=== PATIENT | male | born 1955 | race African-American/Black ===

== ENCOUNTER 2020-05-31 05:35 | Emergency (ER) | payer OTHER, SELFPAY ==
[2020-05-31 05:38] VITALS: BP 146/75; BP 177/88; PULSE 65; PULSE 89; RESP 18; TEMP 36.6; O2SAT 100; O2SAT 98; BMI 24.6
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
== END 2020-05-31 06:05 | disposition home or self-care (01) ==
LOC: HO.ED 06:00
PROVIDERS: Emergency Provider Internal Medicine; PCP Family Medicine
DX: S09.90XA Unspecified injury of head, initial encounter (principal); S00.90XA Unspecified superficial injury of unspecified part of head, initial encounter; G44.309 Post-traumatic headache, unspecified, not intractable; V43.52XA Car driver injured in collision with other type car in traffic accident, initial encounter; Y93.9 Activity, unspecified; Y92.410 Unspecified street and highway as the place of occurrence of the external cause; Y99.9 Unspecified external cause status
CPT/HCPCS: 99283

== ENCOUNTER 2021-03-17 18:29 | Emergency (ER) | payer OTHER, SELFPAY ==
[2021-03-17 18:40] VITALS: BP 146/72; PULSE 65; RESP 16; TEMP 36.4; O2SAT 99; BMI 24.0
--- NOTE | 2021-03-17 18:47 | ED_ITS ---
HPI - General Adult General Chief complaint: Dizziness Stated complaint: dizzy-drank water feels better Time Seen by Provider: 03/17/21 18:41 Source: patient Mode of arrival: EMS Limitations: no limitations History of Present Illness HPI narrative: Patient with history of hypertension otherwise healthy no history of coronary disease was working out today since 14:00 was sitting in the sauna for 16 minutes and then worked out after workout ,patient was in the sun for some time for dinner felt dizzy lightheaded almost passing out had some water and felt better patient denies any chest pain no palpitation no shortness of breath Related Data Allergies Allergy/AdvReac Type Severity Reaction Status Date / Time albuterol [ALBUTEROL] Allergy Unknown HIVES Unverified 03/30/20 16:35 Review of Systems Review of Systems: Yes all other systems are reviewed and are negative COUNT INCLUDES [facility] Past Medical History Medical History HTN (hypertension) Social History Social History Advance Directives: No Advance Directives Information Provided: No Physical Exam Vital Signs: Vital Signs: Last Vital Signs Temp 97.5 F 03/17/21 18:40 Pulse 65 03/17/21 18:40 Resp 16 03/17/21 18:40 BP 146/72 H 03/17/21 18:40 Pulse Ox 99 03/17/21 18:40 Body Mass Index 24.0 Appearance: Alert. Oriented X3. No acute distress. Eyes: PERRLA, No Nystagmus no pallor or icterus ENT: Pharynx normal. Oral Mucosa moist Neck: Normal inspection. Neck supple. CVS: Normal heart rate and rhythm. Pulses normal. Respiratory: No respiratory distress. Equal air entry bilateral, no wheezing/rales/rhonchi Abdomen: Soft and nontender. Bowel sounds are present, no mass palpable, no CVA tenderness Skin: Skin warm and dry. Normal skin color. Normal skin turgor. Extremities: No lower extremity edema. No calf tenderness Neuro: Oriented X 3. No motor deficit. No sensory deficit.No cerebellar signs , cranial nerves II-XII intact Medical Decision Making MDM Narrative Medical decision making narrative: Patient with symptoms of heat exhaustion feel better now after IV fluids and p.o. fluids lab workup showed slightly elevated CPK to 251 cardiac enzymes negative discharge patient home Lab Data Lab results reviewed: Yes I reviewed the patient's lab results. Result diagrams: 03/17/21 19:14 03/17/21 19:15 Labs: Lab Results 03/17/21 03/17/21 03/17/21 Range/Units 19:14 19:15 19:15 WBC 5.7 (4.8-10.8) X10*3/uL RBC 4.78 (4.60-5.80) X10*6/uL Hgb 14.8 (14.0-18.0) g/dl Hct 44.6 (42-52) % MCV 93.3 (80-98) fL MCH 31.0 (27.0-33.0) pg MCHC 33.2 (31.0-36.0) g/dl RDW 11.9 (11.0-16.0) % Plt Count 244 (160-400) X10*3/uL MPV 10.0 (9.4-12.4) fL Immature Gran % (Auto) 0.4 (0.0-0.4) % Neut % (Auto) 84.0 H (45-73) % Lymph % (Auto) 8.2 L (20-40) % Coles % (Auto) 5.6 (2-11) % Eos % (Auto) 1.4 (0-4) % Baso % (Auto) 0.4 (0-2) % Lymph # (Auto) 0.5 L (1.2-4.9) X10*3/uL Coles # (Auto) 0.3 (0.1-1.2) X10*3/uL Eos # (Auto) 0.1 (0.0-0.4) X10*3/uL Baso # (Auto) 0.0 (0.0-0.2) X10*3/uL Abs Immat Gran (auto) 0.02 (0.00-0.03) X10*3/uL Absolute Neuts (auto) 4.8 (2.0-8.3) X10*3/uL Absolute Nucleated RBC 0.000 (0.0-0.012) X10*3/uL Nucleated RBC % (auto) 0.0 (0.0-0.2) /100WBC Sodium 136 (135-145) mmol/L Potassium 4.4 (3.3-5.1) mmol/L Chloride 102 (96-108) mmol/L Carbon Dioxide 25 (22-29) mmol/L Anion Gap 13 (12-20) BUN 17 H (9-16) mg/dL Creatinine 0.85 (0.5-1.4) mg/dL Estim Creat Clear Calc 84.9 Estimated GFR > 60 Random Glucose 156 H (60-115) mg/dL Calcium 9.2 (8.4-10.2) mg/dL Total Bilirubin 0.8 (0.0-1.0) mg/dL AST 27 (5-37) U/L ALT 20 (0-40) U/L Alkaline Phosphatase 57 (39-117) U/L Total Creatine Kinase 251 H (38-174) U/L Troponin I High Sens (<3.5-35.0) ng/L Total Protein 7.5 (6.5-8.0) g/dL Albumin 4.3 (3.5-5.0) g/dL 03/17/21 Range/Units 19:15 WBC (4.8-10.8) X10*3/uL RBC (4.60-5.80) X10*6/uL Hgb (14.0-18.0) g/dl Hct (42-52) % MCV (80-98) fL MCH (27.0-33.0) pg MCHC (31.0-36.0) g/dl RDW (11.0-16.0) % Plt Count (160-400) X10*3/uL MPV (9.4-12.4) fL Immature Gran % (Auto) (0.0-0.4) % Neut % (Auto) (45-73) % Lymph % (Auto) (20-40) % Coles % (Auto) (2-11) % Eos % (Auto) (0-4) % Baso % (Auto) (0-2) % Lymph # (Auto) (1.2-4.9) X10*3/uL Coles # (Auto) (0.1-1.2) X10*3/uL Eos # (Auto) (0.0-0.4) X10*3/uL Baso # (Auto) (0.0-0.2) X10*3/uL Abs Immat Gran (auto) (0.00-0.03) X10*3/uL Absolute Neuts (auto) (2.0-8.3) X10*3/uL Absolute Nucleated RBC (0.0-0.012) X10*3/uL Nucleated RBC % (auto) (0.0-0.2) /100WBC Sodium (135-145) mmol/L Potassium (3.3-5.1) mmol/L Chloride (96-108) mmol/L Carbon Dioxide (22-29) mmol/L Anion Gap (12-20) BUN (9-16) mg/dL Creatinine (0.5-1.4) mg/dL Estim Creat Clear Calc Estimated GFR Random Glucose (60-115) mg/dL Calcium (8.4-10.2) mg/dL Total Bilirubin (0.0-1.0) mg/dL AST (5-37) U/L ALT (0-40) U/L Alkaline Phosphatase (39-117) U/L Total Creatine Kinase (38-174) U/L Troponin I High Sens 7.0 (<3.5-35.0) ng/L Total Protein (6.5-8.0) g/dL Albumin (3.5-5.0) g/dL ECG Data Attestation: I personally reviewed and interpreted this ECG as follows: Interpretation: Normal sinus rhythm heart rate 70 beats per minute normal intervals normal axis no acute ST T wave changes no acute ischemia Discharge Plan Discharge Clinical Impression: Heat exhaustion Patient Disposition: Home, Self-Care Instructions: Heat Exhaustion (ED) Additional Instructions: Drink plenty of fluids while doing exercise Report to the ER if any chest pain shortness of breath or syncope episode again Interventions: ED Discharge Assessment Last Done: 03/17/21 21:09 Discharge Date/Time: 03/17/21 21:10
--- NOTE | 2021-03-17 18:58 | ECG_ITS ---
Test Reason : DIZZINESS Blood Pressure : / mmHG Vent. Rate : 070 BPM Atrial Rate : 070 BPM P-R Int : 142 ms QRS Dur : 090 ms QT Int : 408 ms P-R-T Axes : 050 -14 010 degrees QTc Int : 440 ms Normal sinus rhythm Possible Left atrial enlargement Nonspecific T wave abnormality Abnormal ECG When compared with ECG of 20-DEC-2003 03:22, No significant change was found Referred By: Jonathan Hall Electronically Signed By:MAMTA MARY
[2021-03-17] MEDS: 0.9 % Sodium Chloride 1,000 ML 999 ML IVCONT (19:11)
[2021-03-17 19:20] LABS: Basophils Percent Auto 0.4 % (0-2); Eosinophils Absolute Auto 0.1 X10*3/uL (0.0-0.4); Eosinophils Percent Auto 1.4 % (0-4); Hematocrit 44.6 % (42-52); Hemoglobin 14.8 g/dl (14.0-18.0); Imm Gran Abs Auto 0.02 X10*3/uL (0.00-0.03); Imm Gran Pct Auto 0.4 % (0.0-0.4); Lymphocytes Absolute Auto 0.5 X10*3/uL (1.2-4.9); Lymphocytes Percent Auto 8.2 % (20-40); MANUAL DIFF FLAG NO; Mean Corpuscular HGB Conc 33.2 g/dl (31.0-36.0); Mean Corpuscular Volume 93.3 fL (80-98); Monocytes Absolute Auto 0.3 X10*3/uL (0.1-1.2); Monocytes Percent Auto 5.6 % (2-11); Neutrophils Absolute Auto 4.8 X10*3/uL (2.0-8.3); Platelet Count 244 X10*3/uL (160-400); Red Blood Count 4.78 X10*6/uL (4.60-5.80); Red Cell Distribution Width 11.9 % (11.0-16.0); White Blood Count 5.7 X10*3/uL (4.8-10.8)
[2021-03-17 19:39] LABS: Alanine Aminotransferase 20 U/L (0-40); Albumin Level 4.3 g/dL (3.5-5.0); Alkaline Phosphatase 57 U/L (39-117); Anion Gap 13 (12-20); Aspartate Amino Transferase 27 U/L (5-37); Bilirubin Total 0.8 mg/dL (0.0-1.0); Blood Urea Nitrogen 17 mg/dL (9-16); Calcium 9.2 mg/dL (8.4-10.2); Carbon Dioxide 25 mmol/L (22-29); Chloride 102 mmol/L (96-108); Creatinine Clr Calc Pharmacy 84.9; Estimated Glomerular Filt Rate > 60; Glucose Random 156 mg/dL (60-115); Potassium 4.4 mmol/L (3.3-5.1); Sodium 136 mmol/L (135-145); Total Protein 7.5 g/dL (6.5-8.0)
== END 2021-03-17 21:10 | disposition home or self-care (01) ==
PROVIDERS: Emergency Provider Internal Medicine; PCP Family Medicine
DX: T67.5XXA Heat exhaustion, unspecified, initial encounter (principal); X32.XXXA Exposure to sunlight, initial encounter; R42 Dizziness and giddiness; Y93.89 Activity, other specified; Y92.89 Other specified places as the place of occurrence of the external cause; Y99.9 Unspecified external cause status
CPT/HCPCS: 36415; 80053; 82550; 84484; 85025; 93005; 96360; 99283; 99284

== ENCOUNTER 2024-08-13 07:47 | Emergency (ER) | payer OTHER, SELFPAY ==
--- NOTE | 2024-08-13 07:50 | ED_ITS ---
HPI - Syncope General Chief Complaint: Syncope Stated Complaint: NEAR SYNCOPE,N,V Source: patient, EMS and old records reviewed Mode of arrival: EMS Limitations: no limitations History of Present Illness ED Provider: SIMON WILDER narrative: 68 yo male with PMH of HTN here with c/o waking up and not feeling well this AM. He felt nauseated. He went to work and proceeded to have more dizziness and nausea with vomiting and felt like he was going to faint. He denies LOC or headstrike. He has no pain, fevers, chest pain/dyspnea. No seizures reported. He is feeling much better now. Denies travel or known sick contacts but works at [employer]. 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) Prodromal symptoms: lightheaded and nausea/vomiting Witnessed: No Context: at rest Injuries sustained associated with event: none Current symptoms: back to baseline Treatments prior to arrival: IV fluids Related Data Previous Rx's ?Medication ?Instructions ?Recorded ondansetron 4 mg disintegrating 4 mg PO Q8H PRN nausea and 08/13/24 tablet vomiting #20 tabs Allergies Allergy/AdvReac Type Severity Reaction Status Date / Time albuterol [ALBUTEROL] Allergy Unknown HIVES Verified 08/13/24 08:37 Review of Systems 2 Review of Systems: Constitutional : No Weight loss, No Fever, No Chills ENT/Mouth : No sore throat, No Rhinorrhea Eyes: No Swelling, No Redness Cardiovascular : No Chest Pain, No SOB, NoEdema Respiratory : No Cough, No Sputum, No Wheezing Gastrointestinal : Positive Nausea, Positive Vomiting, no Diarrhea, no abdominal Pain, No Hematochezia, No Melena Genitourinary : No Dysuria, No Urinary Frequency, No Hematuria, No Urgency Musculoskeletal : No joint pain, No Myalgias, No Joint Swelling Skin : No Skin Lesions, No rash Neuro : No Weakness, No Numbness,pos Dizziness, No Headache All other systems reviewed and are negative. [facility] Past Medical History Attestation statement: The following information was validated with the patient. Source: old records reviewed Medical History HTN (hypertension) Social History Social History (Updated 08/13/24 @ 07:50 by Ly Avendaño DO) Patient Tobacco Use Status: Never used Tobacco Smoked in Last 30 Days: No Use of substances other than those prescribed or required for medical reasons: No Advance Directives: No Advance Directives Information Provided: Yes Do you have a plan to hurt others: No Plan Physical Exam 2 Vital Signs: Vital Signs: Last Vital Signs Temp 98 F 08/13/24 08:38 Pulse 70 08/13/24 10:16 Resp 16 08/13/24 10:16 BP 108/69 08/13/24 10:16 Pulse Ox 99 08/13/24 10:16 O2 Del Method Room Air 08/13/24 10:16 BMI result Body Mass Index 25.7 Appearance: Alert. Oriented X3. No acute distress. Eyes: Pupils equal, round and reactive to light. ENT: Pharynx normal. Neck: Normal inspection. Neck supple. CVS: Normal heart rate and rhythm. Pulses normal. Respiratory: No respiratory distress. Breath sounds normal. Abdomen: Soft and nontender. Skin: Skin warm and dry. Normal skin color. Normal skin turgor. Extremities: No lower extremity edema. No calf ttp Neuro: Oriented X 3. No motor deficit. No sensory deficit. CN2-12 intact Medications Administered Discontinued Medications Generic Name Dose Route Start Last Admin Trade Name Freq PRN Reason Stop Dose Admin Sodium Chloride 1,000 mls @ 999 mls/hr 08/13/24 07:59 08/13/24 10:09 Ns IV 08/13/24 08:59 Infused .Q1H1M ONE Infusion Medical Decision Making Medical Decision Making MDM Narrative: 68 yo male with PMH of HTN here with c/o near syncope today no LOC no trauma and the patient prior to this had n/v since since waking at 230am. No trauma reported no CP/SOB to suggest ACS and no signs or known risk factors for DVT doubt VTE. He has no neuro deficits and no associated vision changes, numbness, weakness with the near syncope. At this time no GIB symptoms reported. Will obtain labs, EKG, hydrate - possible dehydration, anemia, viral syndrome. No pain on abd exam to suggest acute infection or vascular event Differential Diagnosis Differential Diagnoses: The differential diagnosis associated with the presentation includes dehydration, anemia, viral syndrome Admission/Observation Consideration of admission/observation: Escalation of care including admission/observation considered labs reassuring sick since 230am neg EKG and trop has no CP/SOB eating and drinking stable for DC no symptoms when standing Lab Data MDM Lab Attestation statement: I reviewed the patient's lab results. 08/13/24 08:21 08/13/24 08:21 Labs: Lab Results 08/13/24 Range/Units 08:21 WBC 6.7 (4.8-10.8) X10*3/uL RBC 4.56 L (4.60-5.80) X10*6/uL Hgb 14.3 (14.0-18.0) g/dl Hct 42.2 (42.0-52.0) % MCV 92.5 (80.0-98.0) fL MCH 31.4 (27.0-33.0) pg MCHC 33.9 (31.0-36.0) g/dl RDW 12.4 (11.0-16.0) % Plt Count 208 (160-400) X10*3/uL MPV 9.9 (9.4-12.4) fL Immature Gran % (Auto) 0.3 (0.0-0.4) % Neut % (Auto) 86.7 H (45-73) % Lymph % (Auto) 5.4 L (20-40) % Dukes % (Auto) 5.8 (2-11) % Eos % (Auto) 1.5 (0-4) % Baso % (Auto) 0.3 (0-2) % Lymph # (Auto) 0.4 L (1.2-4.9) X10*3/uL Dukes # (Auto) 0.4 (0.1-1.2) X10*3/uL Eos # (Auto) 0.1 (0.0-0.4) X10*3/uL Baso # (Auto) 0.0 (0.0-0.2) X10*3/uL Abs Immat Gran (auto) 0.02 (0.00-0.03) X10*3/uL Absolute Neuts (auto) 5.8 (2.0-8.3) x10*3/uL Absolute Nucleated RBC 0.000 (0.0-0.012) X10*3/uL Nucleated RBC % (auto) 0.0 (0.0-0.2) /100WBC Sodium 139 (135-145) mmol/L Potassium 4.1 (3.3-5.1) mmol/L Chloride 108 (96-108) mmol/L Carbon Dioxide 22 (22-29) mmol/L Anion Gap 13 (12-20) BUN 19 H (9-16) mg/dL Creatinine 0.80 (0.5-1.4) mg/dL Estim Creat Clear Calc 86.6 Estimated GFR > 60 Random Glucose 160 H (60-115) mg/dL Calcium 8.5 D (8.4-10.2) mg/dL Magnesium 1.6 (1.6-2.6) mg/dL Total Bilirubin 0.7 (0.0-1.0) mg/dL Direct Bilirubin 0.2 (0.0-0.5) mg/dL AST 24 (5-37) U/L ALT 25 (0-40) U/L Alkaline Phosphatase 52 (39-117) U/L Troponin I High Sens 4.9 (<3.5-35.0) ng/L Total Protein 7.0 (6.5-8.0) g/dL Albumin 3.7 (3.5-5.0) g/dL Lipase 7 L (8-78) U/L Influenza Type A (PCR) NEGATIVE (Negative) Influenza Type B (PCR) NEGATIVE (Negative) RSV RNA Qual (PCR) NEGATIVE (Negative) SARS-CoV-2 RNA (RT-PCR) NEGATIVE (Negative) Independent Interpretation I performed an independent interpretation of an: EKG Interpretation: Rate: 70 Rhythm: NSR [place]: left Normal P waves. Normal DANIEL. Normal QRS complex. ST T wave : nonspecific ST T wave changes, no [place] qTC: 423 prior studies: no acute ischemia no change from priors The study has been interpreted contemporaneously by me. . Independent Historian Clinical information obtained from an independent historian. History obtained from or confirmed by: EMS External Record Review External record reviewed: Outpatient record Prescription Management I considered prescription management with: Other Discharge Plan Discharge Clinical Impression: Near syncope Nausea & vomiting Qualifiers: Vomiting type: unspecified Qualified Code(s): R11.2 - Nausea with vomiting, unspecified Patient Disposition: Home, Self-Care Instructions: Acute Nausea and Vomiting (ED), Near Syncope (ED) Additional Instructions: rest and stay hydrated take your time getting up return for worsening symptoms, chest pain, trouble breathing, repeat episodes of dizziness bland diet and drink plenty of fluids Prescriptions: New ondansetron 4 mg tablet,disintegrating 4 mg PO Q8H PRN (Reason: nausea and vomiting) Qty: 20 0RF Stand Alone Forms: Work/School Release Print Language: Khmer
[2024-08-13 07:54] VITALS: BP 124/72; PULSE 76; O2SAT 98
--- NOTE | 2024-08-13 07:55 | ECG_ITS ---
Test Reason : syncope Blood Pressure : */* mmHG Vent. Rate : 70 BPM Atrial Rate : 70 BPM P-R Int : 138 ms QRS Dur : 92 ms QT Int : 392 ms P-R-T Axes : 45 -4 12 degrees QTcB Int : 423 ms Normal sinus rhythm Possible Left atrial enlargement Nonspecific T wave abnormality Abnormal ECG When compared with ECG of 17-Mar-2021 19:34, No significant change was found Referred By: Ly Avendaño Electronically Signed By: NILAY SÁNCHEZ
[2024-08-13 07:59] VITALS: BP 116/62; PULSE 74; RESP 20; TEMP 36.6; O2SAT 96; BMI 25.7
[2024-08-13 08:26] LABS: MANUAL DIFF FLAG NO
[2024-08-13 08:28] LABS: Basophils Percent Auto 0.3 % (0-2); Eosinophils Absolute Auto 0.1 X10*3/uL (0.0-0.4); Eosinophils Percent Auto 1.5 % (0-4); Hematocrit 42.2 % (42.0-52.0); Hemoglobin 14.3 g/dl (14.0-18.0); Imm Gran Abs Auto 0.02 X10*3/uL (0.00-0.03); Imm Gran Pct Auto 0.3 % (0.0-0.4); Lymphocytes Absolute Auto 0.4 X10*3/uL (1.2-4.9); Lymphocytes Percent Auto 5.4 % (20-40); Mean Corpuscular HGB Conc 33.9 g/dl (31.0-36.0); Mean Corpuscular Hemoglobin 31.4 pg (27.0-33.0); Mean Corpuscular Volume 92.5 fL (80.0-98.0); Mean Platelet Volume 9.9 fL (9.4-12.4); Monocytes Absolute Auto 0.4 X10*3/uL (0.1-1.2); Monocytes Percent Auto 5.8 % (2-11); Neutrophils Absolute Auto 5.8 x10*3/uL (2.0-8.3); Neutrophils Percent Auto 86.7 % (45-73); Platelet Count 208 X10*3/uL (160-400); Red Blood Count 4.56 X10*6/uL (4.60-5.80); Red Cell Distribution Width 12.4 % (11.0-16.0); White Blood Count 6.7 X10*3/uL (4.8-10.8)
[2024-08-13 08:38] VITALS: BP 116/62; PULSE 74; RESP 20; TEMP 36.6; O2SAT 96
[2024-08-13 08:39] VITALS: O2SAT 98
[2024-08-13] MEDS: 0.9 % Sodium Chloride 1,000 ML 999 ML IV (08:40)
[2024-08-13 08:55] LABS: Alanine Aminotransferase 25 U/L (0-40); Albumin Level 3.7 g/dL (3.5-5.0); Alkaline Phosphatase 52 U/L (39-117); Anion Gap 13 (12-20); Aspartate Amino Transferase 24 U/L (5-37); Bilirubin Direct 0.2 mg/dL (0.0-0.5); Bilirubin Total 0.7 mg/dL (0.0-1.0); Blood Urea Nitrogen 19 mg/dL (9-16); Calcium 8.5 mg/dL (8.4-10.2); Carbon Dioxide 22 mmol/L (22-29); Chloride 108 mmol/L (96-108); Creatinine Clr Calc Pharmacy 86.6; Estimated Glomerular Filt Rate > 60; Glucose Random 160 mg/dL (60-115); Lipase 7 U/L (8-78); Magnesium 1.6 mg/dL (1.6-2.6); Potassium 4.1 mmol/L (3.3-5.1); Sodium 139 mmol/L (135-145); Troponin-I High Sensitivity 4.9 ng/L (<3.5-35.0)
[2024-08-13 09:05] LABS: Influenza A PCR NEGATIVE (Negative); Influenza B PCR NEGATIVE (Negative); Resp Syncy Virus RNA Qual PCR NEGATIVE (Negative); SARS COV2 PCR INHOUSE NEGATIVE (Negative)
[2024-08-13 10:16] VITALS: BP 108/69; PULSE 70; RESP 16; O2SAT 99
[2024-08-13 10:34] LABS: Appearance Urine Clear; Color Urine Yellow; Glucose Urine UA Negative (Negative); Leukocyte Esterase Urine Negative (Negative); Nitrite Urine Negative (Negative); PH 5.5 (5.0-9.0); Specific Gravity - Urine 1.025 (1.005-1.025); Urine Blood Negative (Negative); Urine Ketones Negative (Negative); Urine Protein Trace mg/dL (Neg-Trace)
[2024-08-13 11:15] VITALS: BP 119/69; PULSE 73; RESP 20; TEMP 36.6; O2SAT 99
== END 2024-08-13 11:16 | disposition home or self-care (01) ==
PROVIDERS: Emergency Provider Emergency Medicine; PCP Family Medicine
DX: R55 Syncope and collapse (principal); R11.2 Nausea with vomiting, unspecified; R94.31 Abnormal electrocardiogram [ECG] [EKG]; Z03.818 Encounter for observation for suspected exposure to other biological agents ruled out; Z79.899 Other long term (current) drug therapy
CPT/HCPCS: 0241U; 80048; 80076; 81003; 83690; 83735; 84484; 85025; 93005; 96360; 99284; 99285

== ENCOUNTER → 2024-08-13 07:55 | Outpatient (BNV) | payer OTHER, SELFPAY | PROVIDERS: Emergency Provider Emergency Medicine; PCP Family Medicine; Visit Provider Internal Medicine | DX: R94.31 Abnormal electrocardiogram [ECG] [EKG] (principal); R55 Syncope and collapse | CPT/HCPCS: 93010 ==